=== PATIENT | female | born 1975 | race Caucasian/White ===

== ENCOUNTER → 2021-10-20 | Day surgery (SDC) | payer BC ==
[2021-10-20 10:31] VITALS: RESP 16
[2021-10-20 11:35] VITALS: BP 117/76; PULSE 84; TEMP 98.3
--- NOTE | 2021-10-20 12:28 | MM ---
EXAMINATION TYPE: MG stereo VAD BX RT DATE OF EXAM: 10/20/2021 COMPARISON: Outside mammograms September 22, 2021 ON August 30, 2021. CLINICAL HISTORY: Abnormal mammogram TECHNIQUE: Stereotactic guided core biopsy of right breast with clip placement and follow-up diagnostic two-view mammogram.. FINDINGS: The procedure of stereotactic guided core biopsy was explained to the patient. Benefits, alternatives, and risks were discussed. An informed consent was then obtained. [facility] Shortness pathway was lateral to medial approach. I performed the localization, then performed the remainder of the procedure. Overlying skin is cleansed with Betadine. Lidocaine is used as anesthetic into the skin and deeper tissue. Lidocaine with epinephrine is used as anesthetic in the deeper tissue during sampling. A vacuum assisted biopsy gun was used to obtain multiple core samples. The patient tolerated the procedure well without any immediate complication. The patient was kept in the radiology department for short stay after the procedure and then discharged home in stable condition. Targeted calcifications are identified in specimen mammogram. Post biopsy mammogram shows the clip to appear in satisfactory position relative to the targeted area of concern on the preprocedure images. Single residual anterior calcification at this level noted. IMPRESSION: SUCCESSFUL, UNCOMPLICATED STEREOTACTIC GUIDED CORE BIOPSY OF AREA OF CONCERN IN THE RIGHT BREAST, FULL PATHOLOGY RESULTS TO FOLLOW. Intermediate index of suspicion noted at time of procedure. Pathology Results: High Risk RIGHT BREAST, STEREOTACTIC NEEDLE CORE BIOPSY: Focal flat epithelial atypia (FEA) and atypical ductal hyperplasia (ADH) in a background of fibrocystic changes including microcalcifications. Pseudoangiomatous stromal hyperplasia (PASH). Recommendation Surgical consult of the right breast. CHARLEY
== END ==
LOC: RADMAMWWP 10:19
PROVIDERS: ATTEND Family Medicine
DX: N60.91 Unspecified benign mammary dysplasia of right breast (principal)
CPT/HCPCS: 19081; A4648; J2001; 88305

== ENCOUNTER → 2021-11-24 | Outpatient (CLI) | payer BC ==
[2021-11-24 10:24] VITALS: BP 120/76; PULSE 79; RESP 16; TEMP 98.2
--- NOTE | 2021-11-24 11:03 | P.GSHP ---
History of Present Illness H&P Date: 11/24/21 Chief Complaint: atypia right breast stero core biopsy Adry is a 46 year old female seen in consultation for Dr. Mart status post right breast stero biopysy on 10-20-21. Pathology revelaed flat epithelial atypia, and typical ductal hyperplasia. He did not feel any new lumps masses or nodules of concern in either breast. She does have dense breast. She has had an inverted nipple on the right side for approximately 20 years. He is not complaining of any nipple discharge or skin changes. She has not had any surgery on either breast before. Caffeine: none nicotine: none chocolate: occasional Family History: father: of leukemia at 73 pateranal aunt: stomach cancer mother: cystic fibrosis Hormonal History: menarche: 16 M1, first born at 33, breast fed: yes periods regular; last one one week ago BCP: 2 years at 30 to 32 hormones: none Surgical History: Negative Medical history: high cholesterol Social History: Nicotine: Negative Alcohol: weekends occasional drugs: none - Constitutional Constitutional: Denies chills, Denies fever - EENT Comment: wears glasses to drive Eyes: denies blurred vision, denies pain Ears: deny: decreased hearing, tinnitus Ears, nose, mouth and throat: Denies headache, Denies sore throat - Breasts Breasts: bilateral: as per HPI - Cardiovascular Cardiovascular: Denies chest pain, Denies shortness of breath - Respiratory Respiratory: Denies cough, Denies 7 - Gastrointestinal Gastrointestinal: Denies abdominal pain, Denies diarrhea, Denies nausea, Denies vomiting - Genitourinary (Female) Genitourinary: Denies dysuria, Denies hematuria - Menstruation Menstruation: Reports as per HPI, Reports period normal - Musculoskeletal Musculoskeletal: Denies myalgias - Integumentary Integumentary: Denies pruritus, Denies rash - Neurological Neurological: Denies numbness, Denies weakness - Psychiatric Psychiatric: Denies anxiety, Denies depression - Endocrine Endocrine: Denies fatigue, Denies weight change - Hematologic/Lymphatic Comment: none - Allergic/Immunologic Allergic/Immunologic: Reports as per HPI Past Medical History Past Medical History: No Reported History History of Any Multi-Drug Resistant Organisms: None Reported Past Surgical History: No Surgical Hx Reported Past Anesthesia/Blood Transfusion Reactions: No Reported Reaction Past Psychological History: No Psychological Hx Reported Smoking Status: Former smoker Past Alcohol Use History: Occasional Past Drug Use History: None Reported - Past Family History Father History Unknown: Yes Family Medical History: Cancer Medications and Allergies Home Medications Medication Instructions Recorded Confirmed Type [place]-3 Fatty Acids [[place]-3] 1,000 mg PO DAILY 11/24/21 11/24/21 History Allergies Allergy/AdvReac Type Severity Reaction Status Date / Time No Known Allergies Allergy Verified 11/24/21 10:17 Surgical - Exam Vital Signs Temp Pulse Resp BP Pulse Ox 98.2 F 79 16 120/76 100 11/24/21 10:19 11/24/21 10:19 11/24/21 10:19 11/24/21 10:19 11/24/21 10:19 BMI 23 - General no distress - Eyes normal ocular movement - ENT no hearing loss, no congestion - Neck trachea midline - Respiratory normal respiratory effort, clear to auscultation - Cardiovascular Rhythm: regular Heart Sounds: normal: S1, S2 - Abdomen Abdomen: soft, non tender, no guarding, no rigid, no rebound - Integumentary normal turgor - Neurologic no disoriented, no combative - Musculoskeletal normal gait, normal posture - Psychiatric oriented to time, oriented to person, oriented to place, speech is normal, memory intact Breast Exam: BRA: 36C inspection: Bilateral grade 2 ptosis Palpation: Right breast: Biopsy site clean and dry, multiple positional exam fibrocystic changes no dominant masses or nodules of concern Right axilla: No adenopathy of concern left breast: Multiple positional exam fibrocystic changes no dominant masses or nodules of concern Left axilla: No adenopathy of concern Results Mammogram reviewed with radiology, pathology reviewed Assessment and Plan Assessment: Impression: Patient status post right breast stereotactic core biopsy, pathology revealed flat epithelial atypia, and atypical ductal hyperplasia as well as PAS H Plan: Needle localization excisional lumpectomy right breast with possible onco- plastic tissue transfer Risk and benefits of the procedure discussed with the patient and her . Risks include but are not limited to bleeding, infection, reaction to the anesthetic. The possibility of the needle slipping in the area of concern being that removed his discussed. They understand and wish to proceed. CC: Dr. Mart
== END ==
LOC: WWCWWP 10:10
PROVIDERS: ATTEND Surgery
DX: N60.91 Unspecified benign mammary dysplasia of right breast (principal); E78.00 Pure hypercholesterolemia, unspecified; Z87.891 Personal history of nicotine dependence

== ENCOUNTER 2022-02-28 09:23 | Day surgery (SDC) | payer BC ==
[~2022-02-28 09:23] MED LIST: DEXAMETHASONE SOD PHOSPHATE 4 MG/ML 1 ML VIAL IV ONE; HEPARIN SODIUM,PORCINE/PF 5,000 UNIT/0.5 ML SYRINGE SQ PRN; HYDROmorphone 0.5 MG/0.5 ML SYRINGE IVP PRN; LACTATED RINGERS 1,000 ML IV SCH; LIDOCAINE 1% (10MG/ML) FOR IV START INTRADERMA PRN; Pre Op ABX Message 1 EACH MISC MISCELLANE ONE
[2022-02-28] MEDS ORDERED: ALPRAZolam 0.5 MG TAB PO ONE (10:15)
[2022-02-28] MEDS ORDERED: ALPRAZolam 0.5 MG TAB ONE (10:15)
[2022-02-28] MEDS ORDERED: LIDOCAINE 1% INJ 10MG/ML (20 ML MDV) SQ ONE (10:42)
[2022-02-28] MEDS ORDERED: ONDANSETRON 4 MG/2 ML VIAL ONE (11:12)
[2022-02-28] MEDS ORDERED: SCOPOLAMINE 1 MG/72 HR PATCH TRANSDERM ONE (11:20)
[2022-02-28] MEDS ORDERED: LIDOCAINE 2% INJ 20 MG/ML (2 ML VIAL) ONE (13:45)
[2022-02-28] MEDS ORDERED: fentaNYL (PF) 50 MCG/ML 2 ML AMP ONE (13:45)
[2022-02-28] MEDS ORDERED: MIDAZOLAM 2 MG/2 ML VIAL ONE (13:45)
[2022-02-28] MEDS ORDERED: PROPOFOL 10 MG/ML 20 ML VIAL IV ONE (13:45)
[2022-02-28] MEDS ORDERED: SODIUM CHLORIDE 0.9% 50 ML with ceFAZolin 1,000 MG IV ONE ×2 (14:22)
[2022-02-28] MEDS ORDERED: LIDOCAINE 1% INJ 10MG/ML (30 ML VIAL-PF) SQ ONE (15:02)
--- NOTE | 2022-02-28 15:05 | P.OP ---
Date of Procedure: 02/28/22 Preoperative Diagnosis: Flat epithelial atypia right breast Postoperative Diagnosis: Same Procedure(s) Performed: Needle localization lumpectomy, onco-plastic tissue transfer 38Centimeters squared Anesthesia: DOMINIKA Surgeon: Valeri Rush Estimated Blood Loss (ml): 10 IV fluids (ml): 500 Pathology: other (Breasts tissue) Condition: stable Disposition: same day Indications for Procedure: Flat epithelial atypia on core biopsy Operative Findings: Dense breast tissue Description of Procedure: The patient was seen initially in the radiology department where needle localization of the area of concern in the right breast was performed. Patient was then brought to the operative suite. Following induction of anesthesia the right breast was prepped and draped in a sterile fashion. An incision was made and carried down to the shaft of the needle. Circumferential dissection was performed around the needle. The specimen was painted for orientation. Radiograph of the specimen revealed the area of concern had been sampled. The wound was well irrigated. Titanium clips were placed. An inferior flap 2 x 5 cm was performed. A superior flap 2 by 4 cm was formed. The cavity was 5 x 4 cm. The wound was well irrigated. After we were assured hemostatis was attained surgicell in power form was applied. Following this the flaps were brought together using a 3-0 Vicryl suture. The subcutaneous tissue was closed using a 3-0 Vicryl suture followed by a 4 Monocryl. Ten cc of 1% percent lidocaine was injected into the incision. Steri-Strips were applied. All instrument and sponge counts were correct at the end of the case. The patient tolerated the procedure in stable condition.
--- NOTE | 2022-02-28 15:06 | P.DS ---
Providers Attending physician: Valeri Rush Primary care physician: Lucy Tran Plan - Discharge Summary Discharge Rx Participant: No New Discharge Prescriptions: No Action [place]-3 Fatty Acids [[place]-3] 1,000 mg PO DAILY Discharge Medication List [place]-3 Fatty Acids [[place]-3] 1,000 mg PO DAILY 11/24/21 [History] Follow up Appointment(s)/Referral(s): Valeri Rush MD [STAFF PHYSICIAN] - 03/09/22 10:20 am Patient Instructions/Handouts: *Surgery [facility] - (Anesthesia) Discharge Instructions Outpatient Surgery, *Surgery [facility] - Scopalamine Patch Instructions, Breast Lumpectomy (DC) Activity/Diet/Wound Care/Special Instructions: wear bra at all times do not drive for 24 hours after discharge, or if taking narcotic pain medicine may shower after 48 hours Discharge Disposition: HOME SELF-CARE
[2022-02-28 15:21] VITALS: TEMP 98
[2022-02-28 16:33] VITALS: BP 109/58; PULSE 62; RESP 15
--- NOTE | 2022-03-07 09:46 | MM ---
Risk Values: Ana Lilia 5 year model risk: 0.8%. NCI Lifetime model risk: 7.7%. Prior Study Comparison: 11/26/2017 Bilateral MG screening mammo w CAD - 2, [facility]. 11/29/2017 Bilateral US breast BILAT - 2, [facility]. 06/12/2018 Right US breast RT - 2, [facility]. 08/31/2021 Bilateral MG 3D screening mammo w/cad, [facility]. 09/22/2021 Right MG 3D work up w/cad RT, [facility]. Pathology Description: Location: upper outer quadrant. Approach: CC FA Needle Type: 5 cm [place] Skin Nicks: 1 Informed consent was obtained and all the patient's questions were answered. The clip in question was localized mammographically. The standard sterile technique was utilized, as well as appropriate local anesthesia with 1% Lidocaine and bicarbonate. Localization needle followed by placement of a guidewire was performed under mammographic guidance. Verification images demonstrate appropriate deployment of the guidewire. The patient tolerated the procedure well and left the department in stable condition. Specimen radiograph demonstrates the clip in question to reside within the specimen. IMPRESSION: Successful needle localization and open biopsy right breast with pathology results pending. Pathology Results: Result: High risk, Atypical ductal hyperplasia. RIGHT BREAST, LUMPECTOMY: Focal atypical ductal hyperplasia/flat epithelial atypia (ADH/FEA). Fibrosis with hemorrhage, biopsy site change and acute inflammation. Fibrocystic change and focal pseudoangiomatous stromal hyperplasia (PASH) and focal microcalcification. All margins benign. Overall Assessment: High risk Management: Diagnostic Mammogram of the right breast in 6 months. Electronically signed and approved by: Bhupinder López M.D. Radiologis
== END 2022-02-28 16:47 | disposition home or self-care (01) ==
LOC: OR 09:23
PROVIDERS: ATTEND Surgery
DX: N62 Hypertrophy of breast (principal); E78.5 Hyperlipidemia, unspecified; N60.11 Diffuse cystic mastopathy of right breast; Z87.891 Personal history of nicotine dependence; Z80.6 Family history of leukemia; Z83.6 Family history of other diseases of the respiratory system; Z80.0 Family history of malignant neoplasm of digestive organs
CPT/HCPCS: 19125; 14301; 88307; 76098; 19281; J2250; J1100; J2405; J0690; J2001 ×3; J3010; J2704; J1644

== ENCOUNTER → 2022-02-28 | Outpatient (CLI) | payer BC | LOC: WWCWWP 09:18 | PROVIDERS: ATTEND Surgery | DX: Z53.9 Procedure and treatment not carried out, unspecified reason (principal) ==

== ENCOUNTER → 2022-03-09 | Outpatient (CLI) | payer BC ==
[2022-03-09 10:48] VITALS: BP 109/74; PULSE 69; RESP 16
--- NOTE | 2022-03-09 10:56 | P.PN ---
Progress Note - Text Progress Note Date: 03/09/22 Adry is a 46 year old female status post right breast lumpectomy for a core biopsy showing flat epithelial atypia. Pathology revealed flat epithelial atypia focally atypical ductal hyperplasia. Tolerated the procedure without difficulty. Ana Lilia Risk : 5 year: 2.2% lifetime risk: 18.9% Examination: lungs: clear heart: RRR incision: clan and dry Plan: follow up right breast mammogram in 6 months with appointment at that time we have discussed risk reduction secondary to Ana Lilia evaluation, and at this time she has declined risk reduction. CC: Dr. Mart
== END ==
LOC: LABWHC1 10:22
PROVIDERS: ATTEND Surgery
DX: N60.91 Unspecified benign mammary dysplasia of right breast (principal); Z98.890 Other specified postprocedural states

== ENCOUNTER → 2022-09-21 | Outpatient (CLI) | payer BC ==
--- NOTE | 2022-09-01 13:46 | MM ---
Reason for Exam: Follow-up at short interval from prior study. Last screening mammogram was performed 11 month(s) ago. Patient History: Menarche at age 16. First Full-Term at age 33. Late child-bearing (after 31). Premenopausal. Patient has history of breast feeding. Previous Atypical Ductal Hyperplasia at age 46. 02/28/2022, Lumpectomy on the Right side. 02/28/2022, High risk MG pre op needle loc RT on the right side. 10/20/2021, High risk Core Biopsy on the right side. Risk Values: Ana Lilia 5 year model risk: 5.3%. NCI Lifetime model risk: 32.4%. Prior Study Comparison: 11/26/2017 Bilateral MG screening mammo w CAD - 2, [facility]. 08/31/2021 Bilateral MG 3D screening mammo w/cad, [facility]. 09/22/2021 Right MG 3D work up w/cad RT, [facility]. Tissue Density: The breast tissue is heterogeneously dense. This may lower the sensitivity of mammography. Findings: Analyzed By CAD. Postsurgical changes of the right upper outer breast posterior depth. No new suspicious mass or worrisome cluster of calcifications within either breast. Overall Assessment: Benign, BI-RAD 2 Management: Screening Mammogram of both breasts in 1 year. A clinical breast exam by your physician is recommended on an annual basis and results should be correlated with mammographic findings. This exam should not preclude additional follow-up of suspicious palpable abnormalities. Results were given to the patient verbally at the time of exam. Electronically signed and approved by: Jimmy Dhillon D.O.
[2022-09-21 08:57] VITALS: BP 118/74; PULSE 76; RESP 16; TEMP 98.4
--- NOTE | 2022-09-21 09:31 | P.PN ---
Subjective Progress Note Date: 09/21/22 Principal diagnosis: Atypical ductal hyperplasia Adry is a 46 year old female seen in consultation for Dr. Mart status post right breast stero biopysy on 10-20-21. Pathology revelaed flat epithelial atypia, and typical ductal hyperplasia. [place] [id number]. This revealed focal atypical ductal hyperplasia/flat epithelial atypia. All margins were benign. The [place] [address]. This was personally reviewed. This revealed heterogeneously dense breast tissue and was considered to be BIRADS 2. At this time the patient is not complaining of any new lumps masses or nodules of concern in either breast. Ana Lilia 5 year model risk: 5.3% NCI lifetime risk: 32.4% Caffeine: none nicotine: none chocolate: occasional Family History: father: of leukemia at 73 pateranal aunt: stomach cancer mother: cystic fibrosis Hormonal History: menarche: 16 M1, first born at 33, breast fed: yes periods regular; last one one week ago BCP: 2 years at 30 to 32 hormones: none Surgical History: Negative Medical history: high cholesterol Social History: Nicotine: Negative Alcohol: weekends occasional drugs: none - Constitutional Constitutional: Denies chills, Denies fever - EENT Comment: wears glasses to drive Eyes: denies blurred vision, denies pain Ears: deny: decreased hearing, tinnitus Ears, nose, mouth and throat: Denies headache, Denies sore throat - Breasts Breasts: bilateral: as per HPI - Cardiovascular Cardiovascular: Denies chest pain, Denies shortness of breath - Respiratory Respiratory: Denies cough - Gastrointestinal Gastrointestinal: Denies abdominal pain, Denies diarrhea, Denies nausea, Denies vomiting - Genitourinary (Female) Genitourinary: Denies dysuria, Denies hematuria - Menstruation Menstruation: Reports as per HPI, Reports period normal - Musculoskeletal Musculoskeletal: Denies myalgias - Integumentary Integumentary: Denies pruritus, Denies rash - Neurological Neurological: Denies numbness, Denies weakness - Psychiatric Psychiatric: Denies anxiety, Denies depression - Endocrine Endocrine: Denies fatigue, Denies weight change - Hematologic/Lymphatic Comment: none - Allergic/Immunologic Allergic/Immunologic: Reports as per HPI Past Medical History Past Medical History: No Reported History History of Any Multi-Drug Resistant Organisms: None Reported Past Surgical History: No Surgical Hx Reported Past Anesthesia/Blood Transfusion Reactions: No Reported Reaction Past Psychological History: No Psychological Hx Reported Smoking Status: Former smoker Past Alcohol Use History: Occasional Past Drug Use History: None Reported - Past Family History Father History Unknown: Yes Family Medical History: Cancer Medications and Allergies Home Medications Medication Instructions Recorded Confirmed Type [place]-3 Fatty Acids [[place]-3] 1,000 mg PO DAILY 11/24/21 11/24/21 History Allergies Allergy/AdvReac Type Severity Reaction Status Date / Time No Known Allergies Allergy Verified 11/24/21 10:17 Objective - Vital Signs Vital signs: Vital Signs Temp 98.4 F 09/21/22 08:52 Pulse 76 09/21/22 08:52 Resp 16 09/21/22 08:52 BP 118/74 09/21/22 08:52 Pulse Ox 99 09/21/22 08:52 FiO2 Intake & Output 09/20/22 09/21/22 09/21/22 18:59 06:59 18:59 Weight 60.781 kg - Constitutional General appearance: Present: cooperative - EENT Eyes: Present: EOMI ENT: Present: hearing grossly normal - Neck Neck: Present: normal ROM - Respiratory Respiratory: bilateral: CTA - Cardiovascular Rhythm: regular Heart sounds: normal: S1, S2 - Gastrointestinal General gastrointestinal: Present: soft - Integumentary Integumentary: Present: normal turgor - Musculoskeletal Musculoskeletal: Present: gait normal - Psychiatric Psychiatric: Present: A&O x's 3, appropriate affect, intact judgment & insight - Additional findings Additional findings: Breast Exam: BRA: 36C inspection: Bilateral grade 2 ptosis Palpation: Right breast: multiple positional exam fibrocystic changes no dominant masses or nodules of concern, well healed scar right breast Right axilla: No adenopathy of concern left breast: Multiple positional exam fibrocystic changes no dominant masses or nodules of concern Left axilla: No adenopathy of concern Assessment and Plan Assessment: Impression: Fibrocystic breast disease Elevated Ana Lilia five-year risk/patient has declined chemoprophylaxis at this time close surveillance Plan: WE have discussed NCI risk greater than 20% and the potential for every 6 month evaluation alternating with mammogram versus MRI we will attempt to order an MRI in 6 months and I'll see the patient again at that time CC: Dr. Mart
== END | disposition home or self-care (01) ==
LOC: RADMAMWWP 09-01 12:57
PROVIDERS: ATTEND Surgery
DX: N60.11 Diffuse cystic mastopathy of right breast (principal); R92.8 Other abnormal and inconclusive findings on diagnostic imaging of breast; E78.00 Pure hypercholesterolemia, unspecified; Z87.891 Personal history of nicotine dependence; Z80.0 Family history of malignant neoplasm of digestive organs; Z80.6 Family history of leukemia; Z80.9 Family history of malignant neoplasm, unspecified
CPT/HCPCS: 77062; 77066

== ENCOUNTER → 2023-05-17 | Outpatient (CLI) | payer BC ==
--- NOTE | 2023-05-17 12:36 | P.PN ---
Subjective Progress Note Date: 05/17/23 Subjective Progress Note Date: 09/21/22 Principal diagnosis: Atypical ductal hyperplasia Adry is a 46 year old female seen in consultation for Dr. Mart status post right breast stero biopysy on 10-20-21. Pathology revelaed flat epithelial atypia, and typical ductal hyperplasia. She underwent [place] [id number]. This revealed focal atypical ductal hyperplasia/flat epithelial atypia. All margins were benign. The patient had a bilateral mammogram performed on . This was personally reviewed. This revealed heterogeneously dense breast tissue and was considered to be BIRADS 2. At this time the patient is not complaining of any new lumps masses or nodules of concern in either breast. Ana Lilia 5 year model risk: 5.3% NCI lifetime risk: 32.4% 05-17-23 Breast MRI done on 04-25-23 BENIGN FINDINGS BILATERAL She is not complaining of any new lumps masses or nodules in either breast She had an interview for genetic testing and decided not ot have it done Caffeine: none nicotine: none chocolate: occasional Family History: father: of leukemia at 73 pateranal aunt: stomach cancer mother: cystic fibrosis Hormonal History: menarche: 16 M1, first born at 33, breast fed: yes periods regular; last one one week ago BCP: 2 years at 30 to 32 hormones: none Surgical History: Negative Medical history: high cholesterol Social History: Nicotine: Negative Alcohol: weekends occasional drugs: none - Constitutional Constitutional: Denies chills, Denies fever - EENT Comment: wears glasses to drive Eyes: denies blurred vision, denies pain Ears: deny: decreased hearing, tinnitus Ears, nose, mouth and throat: Denies headache, Denies sore throat - Breasts Breasts: bilateral: as per HPI - Cardiovascular Cardiovascular: Denies chest pain, Denies shortness of breath - Respiratory Respiratory: Denies cough - Gastrointestinal Gastrointestinal: Denies abdominal pain, Denies diarrhea, Denies nausea, Denies vomiting - Genitourinary (Female) Genitourinary: Denies dysuria, Denies hematuria - Menstruation Menstruation: Reports as per HPI, Reports period normal - Musculoskeletal Musculoskeletal: Denies myalgias - Integumentary Integumentary: Denies pruritus, Denies rash - Neurological Neurological: Denies numbness, Denies weakness - Psychiatric Psychiatric: Denies anxiety, Denies depression - Endocrine Endocrine: Denies fatigue, Denies weight change - Hematologic/Lymphatic Comment: none - Allergic/Immunologic Allergic/Immunologic: Reports as per HPI Past Medical History Past Medical History: No Reported History History of Any Multi-Drug Resistant Organisms: None Reported Past Surgical History: No Surgical Hx Reported Past Anesthesia/Blood Transfusion Reactions: No Reported Reaction Past Psychological History: No Psychological Hx Reported Smoking Status: Former smoker Past Alcohol Use History: Occasional Past Drug Use History: None Reported - Past Family History Father History Unknown: Yes Family Medical History: Cancer Medications and Allergies Home Medications Medication Instructions Recorded Confirmed Type [place]-3 Fatty Acids [[place]-3] 1,000 mg PO DAILY 11/24/21 11/24/21 History Allergies Allergy/AdvReac Type Severity Reaction Status Date / Time No Known Allergies Allergy Verified 11/24/21 10:17 Objective - Constitutional General appearance: Present: cooperative - EENT Eyes: Present: EOMI ENT: Present: hearing grossly normal - Neck Neck: Present: normal ROM - Respiratory Respiratory: bilateral: CTA - Cardiovascular Rhythm: regular Heart sounds: normal: S1, S2 - Integumentary Integumentary: Present: normal turgor - Psychiatric Psychiatric: Present: A&O x's 3, appropriate affect, intact judgment & insight - Additional findings Additional findings: Breast Exam: BRA: 36C inspection: Bilateral grade 2 ptosis Palpation: Right breast: multi-positional exam fibrocystic changes no dominant masses or nodules of concern, well healed scar right breast Right axilla: No adenopathy of concern left breast: Multi-positional exam fibrocystic changes no dominant masses or nodules of concern Left axilla: No adenopathy of concern Assessment and Plan Assessment: Impression: Fibrocystic breast disease Elevated Ana Lilia five-year risk/patient has declined chemoprophylaxis at this time close surveillance Plan: She is going to have close surveillance at this time She is alternating MRI with mammograms and will have a mammogram in 6 months with an examination at that time she is still considering genetic testing CC: Dr. Mart
== END ==
LOC: WWCWWP 11:54
PROVIDERS: ATTEND Surgery
DX: N60.89 Other benign mammary dysplasias of unspecified breast (principal); E78.00 Pure hypercholesterolemia, unspecified; N60.19 Diffuse cystic mastopathy of unspecified breast; R63.5 Abnormal weight gain; Z87.891 Personal history of nicotine dependence

== ENCOUNTER → 2023-10-29 | Outpatient (CLI) | payer BC ==
--- NOTE | 2023-10-29 11:28 | MM ---
Reason for Exam: Follow-up at short interval from prior study. Last mammogram was performed 1 year(s) and 2 month(s) ago. Patient History: Menarche at age 16. First Full-Term at age 33. Late child-bearing (after 30). Premenopausal. Patient has history of breast feeding. Previous Atypical Ductal Hyperplasia at age 46. 02/28/2022, Lumpectomy on the Right side. 02/28/2022, High risk MG pre op needle loc RT on the right side. 10/20/2021, High risk Core Biopsy on the right side. Last menstrual period: 10/07/2023 Risk Values: Ana Lilia 5 year model risk: 3.5%. NCI Lifetime model risk: 23.6%. Prior Study Comparison: 11/26/2017 Bilateral MG screening mammo w CAD - 2, [facility]. 08/31/2021 Bilateral MG 3D screening mammo w/cad, [facility]. 09/22/2021 Right MG 3D work up w/cad RT, [facility]. 09/01/2022 Bilateral MG 3D diag mammo w/cad [facility], [facility]. Tissue Density: The breasts are heterogeneously dense, which may obscure small masses. Findings: Analyzed By CAD. Postexcisional scar and distortion posterior parietal quadrant right breast with surgical clips. Areas of asymmetric density appear unchanged without persisting abnormality on 3-D images. No suspicious microcalcification seen. Overall Assessment: Incomplete: need additional imaging evaluation, BI-RAD 0 Management: Diagnostic Breast Ultrasound of both breasts. Electronically signed and approved by: Nelly Carolina M.D. Radiologist
--- NOTE | 2023-10-29 12:13 | USB ---
Reason for Exam: Additional evaluation requested from prior study. Patient History: Menarche at age 16. First Full-Term at age 33. Late child-bearing (after 30). Premenopausal. Patient has history of breast feeding. Previous Atypical Ductal Hyperplasia at age 46. 02/28/2022, Lumpectomy on the Right side. 02/28/2022, High risk MG pre op needle loc RT on the right side. 10/20/2021, High risk Core Biopsy on the right side. Risk Values: Ana Lilia 5 year model risk: 3.5%. NCI Lifetime model risk: 23.6%. Technique: Method: Whole Breast Handheld. Doppler: Color. Patient Position: Supine. Prior Study Comparison: 08/31/2021 Bilateral MG 3D screening mammo w/cad, [facility]. 09/22/2021 Right MG 3D work up w/cad RT, [facility]. 09/01/2022 Bilateral MG 3D diag mammo w/cad [place], [facility]. Findings: The whole breast of both breasts, the axilla of both breasts and the retroareolar of both breasts were scanned. A complete US of all four quadrants of the bilateral breasts, axilla, and retro-areolar region were reviewed. Right: * Dense tissues are present throughout. * Benign 1.0 cm cyst at 8:00, 4 cm from the nipple. Additional small cysts are present. * Some scattered mild duct ectasia is demonstrated. Some of these ducts may demonstrate some internal debris/filling defect which should be reassessed in 6 months. * No other solid or cystic lesion or axillary lymphadenopathy. Left: * Dense tissue is present throughout. * Some scattered mild duct ectasia is noted such as at the 8:00 position. Some of these ducts may demonstrate some internal debris/filling defect which should be reassessed in 6 months. * At the 10:00 position, 5 cm from the nipple, there is an ovoid 2.3 x 1.7 x 0.9 cm hypoechoic area embedded within dense tissue. Suspect a prominent fat lobule that can be reassessed in 6 months. * No other solid or cystic lesion or axillary lymphadenopathy. Overall Assessment: Probably benign, BI-RAD 3 Management: Diagnostic Breast Ultrasound of both breasts in 6 months. A clinical breast exam by your physician is recommended on an annual basis and results should be correlated with mammographic findings. This exam should not preclude additional follow-up of suspicious palpable abnormalities. Results were given to the patient verbally at the time of exam. Note on Ana Lilia scores and lifetime risk: 1. A Ana Lilia score greater than 3% is considered moderate risk. If this is the case, consider specialist referral to assess eligibility for a risk reducing agent. 2. If overall lifetime risk for the development of breast cancer is 20% or higher, the patient may qualify for future screening with alternating mammogram and breast MRI. Electronically signed and approved by: Nelly Carolina M.D. Radiologist
== END | disposition home or self-care (01) ==
LOC: RADMAMWWP 10:59
PROVIDERS: ATTEND Surgery
DX: N60.01 Solitary cyst of right breast (principal); N60.41 Mammary duct ectasia of right breast; N60.42 Mammary duct ectasia of left breast; R92.333 Mammographic heterogeneous density, bilateral breasts
CPT/HCPCS: 77062; 77066

== ENCOUNTER → 2023-11-01 | Outpatient (CLI) | payer BC ==
[2023-11-01 12:11] VITALS: BP 113/76; PULSE 76; RESP 16; TEMP 98.4
--- NOTE | 2023-11-01 12:29 | P.PN ---
Subjective Progress Note Date: 11/01/23 Subjective Progress Note Date: 11-01-23 Principal diagnosis: Atypical ductal hyperplasia Adry is a 46 year old female seen in consultation for Dr. Mart status post right breast stero biopysy on 10-20-21. Pathology revelaed flat epithelial atypia, and typical ductal hyperplasia. She underwent [place] needle [place] [id number]. This revealed focal atypical ductal hyperplasia/flat epithelial atypia. All margins were benign. The patient had a bilateral mammogram performed on . This was personally reviewed. This revealed heterogeneously dense breast tissue and was considered to be BIRADS 2. At this time the patient is not complaining of any new lumps masses or nodules of concern in either breast. Ana Lilia 5 year model risk: 5.3% NCI lifetime risk: 32.4% 05-17-23 Breast MRI done on 04-25-23 BENIGN FINDINGS BILATERAL She is not complaining of any new lumps masses or nodules in either breast She had an interview for genetic testing and decided not ot have it done 11-01-23 The patient does not feel any new lumps but her breast feel granular. Bilateral mammogram on 10-29-23 which led to bilateral ultrasound on 10-29-23: diagnostic ultrasound of both breast in 6 months Ana Lilia 5 year risk: 3.5% life time risk: 23.6% Caffeine: none nicotine: none chocolate: occasional Family History: father: of leukemia at 73 pateranal aunt: stomach cancer mother: cystic fibrosis Hormonal History: menarche: 16 M1, first born at 33, breast fed: yes periods regular; last one one week ago BCP: 2 years at 30 to 32 hormones: none Surgical History: tooth extraction Medical history: high cholesterol Social History: Nicotine: Negative Alcohol: weekends occasional drugs: none - Constitutional Constitutional: Denies chills, Denies fever - EENT Comment: wears glasses to drive Eyes: denies blurred vision, denies pain Ears: deny: decreased hearing, tinnitus Ears, nose, mouth and throat: Denies headache, Denies sore throat - Breasts Breasts: bilateral: as per HPI - Cardiovascular Cardiovascular: Denies chest pain, Denies shortness of breath - Respiratory Respiratory: Denies cough - Gastrointestinal Gastrointestinal: Denies abdominal pain, Denies diarrhea, Denies nausea, Denies vomiting - Genitourinary (Female) Genitourinary: Denies dysuria, Denies hematuria - Menstruation Menstruation: Reports as per HPI, Reports period normal - Musculoskeletal Musculoskeletal: Denies myalgias - Integumentary Integumentary: Denies pruritus, Denies rash - Neurological Neurological: Denies numbness, Denies weakness - Psychiatric Psychiatric: Denies anxiety, Denies depression - Endocrine Endocrine: Denies fatigue, Denies weight change - Hematologic/Lymphatic Comment: none - Allergic/Immunologic Allergic/Immunologic: Reports as per HPI Past Medical History Past Medical History: No Reported History History of Any Multi-Drug Resistant Organisms: None Reported Past Surgical History: No Surgical Hx Reported Past Anesthesia/Blood Transfusion Reactions: No Reported Reaction Past Psychological History: No Psychological Hx Reported Smoking Status: Former smoker Past Alcohol Use History: Occasional Past Drug Use History: None Reported - Past Family History Father History Unknown: Yes Family Medical History: Cancer Medications and Allergies Home Medications Medication Instructions Recorded Confirmed Type [place]-3 Fatty Acids [[place]-3] 1,000 mg PO DAILY 11/24/21 11/24/21 History Allergies Allergy/AdvReac Type Severity Reaction Status Date / Time No Known Allergies Allergy Verified 11/24/21 10:17 Objective - Vital Signs Vital signs: Vital Signs Temp 98.4 F 11/01/23 12:05 Pulse 76 11/01/23 12:05 Resp 16 11/01/23 12:05 BP 113/76 11/01/23 12:05 Pulse Ox 99 11/01/23 12:05 FiO2 Intake & Output 10/31/23 11/01/23 11/01/23 18:59 06:59 18:59 Weight 61.689 kg - Constitutional General appearance: Present: cooperative - EENT Eyes: Present: EOMI ENT: Present: hearing grossly normal - Neck Neck: Present: normal ROM - Respiratory Respiratory: bilateral: CTA - Cardiovascular Heart sounds: normal: S1, S2 - Integumentary Integumentary: Present: normal turgor - Musculoskeletal Musculoskeletal: Present: gait normal - Psychiatric Psychiatric: Present: A&O x's 3, appropriate affect, intact judgment & insight - Additional findings Additional findings: Breast Exam: BRA: 36C inspection: Bilateral grade 2 ptosis Palpation: Right breast: multi-positional exam fibrocystic changes no dominant masses or nodules of concern, well healed scar right breast Right axilla: No adenopathy of concern left breast: Multi-positional exam fibrocystic changes no dominant masses or nodules of concern Left axilla: No adenopathy of concern Assessment and Plan Assessment: Impression: Fibrocystic breast disease Elevated Ana Lilia five-year risk/patient has declined chemoprophylaxis at this time close surveillance Plan: She is going to have close surveillance at this time She is alternating MRI with mammograms and will have an MRI in April and bilateral breast ultrasound She will follow up after her MRI and ultrasound she decided to wait for genetic counselling CC: Dr. Mart
== END ==
LOC: WWCWWP 11:38
PROVIDERS: ATTEND Surgery
DX: N60.11 Diffuse cystic mastopathy of right breast (principal); E78.00 Pure hypercholesterolemia, unspecified

== ENCOUNTER → 2024-05-23 | Outpatient (CLI) | payer BC ==
--- NOTE | 2024-05-23 13:35 | USB ---
Reason for Exam: Follow-up at short interval from prior study. Patient History: Menarche at age 16. First Full-Term at age 33. Late child-bearing (after 30). Premenopausal. Patient has history of breast feeding. Previous Atypical Ductal Hyperplasia at age 46. 02/28/2022, Lumpectomy on the Right side. 02/28/2022, High risk MG pre op needle loc RT on the right side. 10/20/2021, High risk Core Biopsy on the right side. Risk Values: Willie 5 year model risk: 3.3%. NCI Lifetime model risk: 23.0%. Technique: Method: Targeted. Prior Study Comparison: 09/22/2021 Right MG 3D work up w/cad RT, [facility]. 09/01/2022 Bilateral MG 3D diag mammo w/cad [place], [facility]. 10/29/2023 Bilateral MG 3D diag mammo w/cad [place], [facility]. Findings: The lateral section of the breast of the left breast and the retroareolar of both breasts were scanned. Ultrasound right breast subareolar and periareolar region. There is redemonstrated duct ectasia some of which contain internal echoes. Given the lack of nipple discharge, this can continue to be followed. No other solid or cystic lesion. Targeted ultrasound left breast 8:00, 10:00, and subareolar region. Scattered dense tissue is present. At the 10:00 position, 5 cm from the nipple, at the previously questioned site, there is a benign fat lobule measuring 1.9 cm embedded within the dense tissue. Overall Assessment: Probably benign, BI-RAD 3 Management: Diagnostic Mammogram of both breasts in 5 months. Diagnostic Breast Ultrasound of the right breast in 5 months. In time for the patient's annual exam. Reassess the right breast ectatic ducts with internal echoes at the time of follow-up. We note that the patient is scheduled to have a breast MRI. A clinical breast exam by your physician is recommended on an annual basis and results should be correlated with mammographic findings. This exam should not preclude additional follow-up of suspicious palpable abnormalities. Results were given to the patient verbally at the time of exam. NOTE ON WILLIE SCORES AND LIFETIME RISK: 1. A Willie score greater than 3% is considered moderate risk. If this is the case, consider specialist referral to assess eligibility for a risk reducing agent. 2. If overall lifetime risk for the development of breast cancer is 20% or higher, the patient may qualify for future screening with alternating mammogram and breast MRI. [facility], , 05/23/2024 1:31 PM. Electronically signed and approved by: Nelly Carolina M.D. Radiologist
== END | disposition home or self-care (01) ==
LOC: RADUSWWP 12:58
PROVIDERS: ATTEND Surgery
DX: R92.8 Other abnormal and inconclusive findings on diagnostic imaging of breast (principal)

== ENCOUNTER → 2024-05-27 | Outpatient (CLI) | payer BC ==
--- NOTE | 2024-05-29 10:10 | BMR ---
EXAM DATE: 05/27/2024 EXAM DESCRIPTION: MRI-Breast Bilat (W/WO Contrast) INDICATION: High risk surveillance. COMPARISON: Comparison was made to prior relevant imaging available in PACS TECHNIQUE: Multiplanar multisequence breast MRI was performed prior to and after administration of 7 mL of Gadavist intravenously. Post processing was performed utilizing a [employer] workstation. The technical portion of this study was performed at [facility] with radiological interpretation by [facility] radiology. FINDINGS: There is moderate, symmetric background parenchymal enhancement in breasts that are composed of heterogeneous fibroglandular tissue. RIGHT BREAST: Postsurgical changes are present in the upper outer posterior depth of the breast. Review of the dynamic contrast enhanced series shows no rapidly enhancing masses, suspicious enhancement patterns or other abnormalities. The T2 weighted series show no abnormality. LEFT BREAST: Review of the dynamic contrast enhanced series shows no rapidly enhancing masses, suspicious enhancement pattern or other abnormalities. The T2 weighted series show no abnormality. LYMPH NODES: No axillary or internal mammary lymphadenopathy. INCIDENTAL FINDINGS: Trace dependent bilateral pleural effusions. Trace pericardial effusion. IMPRESSION: Right breast: BI-RADS Category 2-benign. No MRI evidence of malignancy. Recommendation: MRI screening in 1 year Left breast: BI-RADS Category 1-negative. No MR evidence of malignancy. Recommendation: MRI screening in 1 year. OVERALL ASSESSMENT- BI-RADS 2 ANNUAL SCREENING BREAST MRI IN ADDITION TO MAMMOGRAPHY IS RECOMMENDED IN PATIENTS WITH LIFETIME RISK OF BREAST CANCER >20% MTDD
== END | disposition home or self-care (01) ==
LOC: RADMRIMAIN 08:08
PROVIDERS: ATTEND Surgery
DX: R92.8 Other abnormal and inconclusive findings on diagnostic imaging of breast (principal)
CPT/HCPCS: 77049; A9585

== ENCOUNTER → 2024-06-06 | Outpatient (CLI) | payer BC ==
[2024-06-06 15:05] VITALS: BP 105/67; PULSE 71; RESP 17; TEMP 98.1
--- NOTE | 2024-06-06 15:31 | P.PN ---
Subjective Progress Note Date: 06/06/24 Principal diagnosis: 06-06-24 Adry is a 48 year old female with increased risk of breast cancer. She had an open biopsy on 02-28-22 of the right breast which revealed focal atypical ductal hyperplasia/flat epithelial atypia. All margins were benign. She declined chemoprophylaxis. bilateral breast MRI 05-18-24 benign findings bilateral bilateral breast ultrasound 05-23-24 BIRAD 3; repeat right breast ultrasound in 5 months and bilateral mammogram She had an interview for genetic testing and decided not to have it done She is not complaining of any new lumps masses or nodules of concern in either breast. She is not complaining of any nipple discharge or skin changes in her breast. She has not had any recent trauma or infection in the breast. Ana Lilia 5 year risk: 3.5% life time risk: 23.6% Caffeine: none nicotine: none chocolate: occasional Family History: father: of leukemia at 73 pateranal aunt: stomach cancer mother: cystic fibrosis Hormonal History: menarche: 16 M1, first born at 33, breast fed: yes periods regular; last one one week ago BCP: 2 years at 30 to 32 hormones: none Surgical History: tooth extraction tooth implant Medical history: high cholesterol Social History: Nicotine: Negative Alcohol: weekends occasional drugs: none - Constitutional Constitutional: Denies chills, Denies fever - EENT Comment: wears glasses to drive Eyes: denies blurred vision, denies pain Ears: deny: decreased hearing, tinnitus Ears, nose, mouth and throat: Denies headache, Denies sore throat - Breasts Breasts: bilateral: as per HPI - Cardiovascular Cardiovascular: Denies chest pain, Denies shortness of breath - Respiratory Respiratory: Denies cough - Gastrointestinal Gastrointestinal: Denies abdominal pain, Denies diarrhea, Denies nausea, Denies vomiting - Genitourinary (Female) Genitourinary: Denies dysuria, Denies hematuria - Menstruation Menstruation: Reports as per HPI, Reports period normal - Musculoskeletal Musculoskeletal: Denies myalgias - Integumentary Integumentary: Denies pruritus, Denies rash - Neurological Neurological: Denies numbness, Denies weakness - Psychiatric Psychiatric: Denies anxiety, Denies depression - Endocrine Endocrine: Denies fatigue, Denies weight change - Hematologic/Lymphatic Comment: none - Allergic/Immunologic Allergic/Immunologic: Reports as per HPI Past Medical History Past Medical History: No Reported History History of Any Multi-Drug Resistant Organisms: None Reported Past Surgical History: No Surgical Hx Reported Past Anesthesia/Blood Transfusion Reactions: No Reported Reaction Past Psychological History: No Psychological Hx Reported Smoking Status: Former smoker Past Alcohol Use History: Occasional Past Drug Use History: None Reported - Past Family History Father History Unknown: Yes Family Medical History: Cancer Medications and Allergies Home Medications Medication Instructions Recorded Confirmed Type [place]-3 Fatty Acids [[place]-3] 1,000 mg PO DAILY 11/24/21 11/24/21 History Allergies Allergy/AdvReac Type Severity Reaction Status Date / Time No Known Allergies Allergy Verified 11/24/21 10:17 Objective - Vital Signs Vital signs: Vital Signs Temp 98.1 F 06/06/24 15:02 Pulse 71 06/06/24 15:02 Resp 17 06/06/24 15:02 BP 105/67 06/06/24 15:02 Pulse Ox 100 06/06/24 15:02 FiO2 Intake & Output 06/05/24 06/06/24 06/06/24 18:59 06:59 18:59 Weight 63.503 kg - Constitutional General appearance: Present: cooperative - EENT Eyes: Present: EOMI ENT: Present: hearing grossly normal - Neck Neck: Present: normal ROM - Respiratory Respiratory: bilateral: CTA - Cardiovascular Rhythm: regular Heart sounds: normal: S1, S2 - Integumentary Integumentary: Present: normal turgor - Musculoskeletal Musculoskeletal: Present: gait normal - Psychiatric Psychiatric: Present: A&O x's 3, appropriate affect, intact judgment & insight - Additional findings Additional findings: Breast Exam: BRA: 36C inspection: Bilateral grade 2 ptosis Palpation: Right breast: multi-positional exam fibrocystic changes no dominant masses or nodules of concern, well healed scar right breast Right axilla: No adenopathy of concern left breast: Multi-positional exam fibrocystic changes no dominant masses or nodules of concern Left axilla: No adenopathy of concern Assessment and Plan Assessment: Impression: Fibrocystic breast disease Elevated Ana Lilia five-year risk/patient has declined chemoprophylaxis at this time close surveillance Plan: She is going to have close surveillance at this time She is alternating MRI with mammograms and will have a bilateral mammogram and ultrasound in 5 months with appointment she decided to wait for genetic counselling CC: Dr. Mart
== END ==
LOC: WWCWWP 14:12
PROVIDERS: ATTEND Surgery
DX: N60.91 Unspecified benign mammary dysplasia of right breast (principal); N60.11 Diffuse cystic mastopathy of right breast; N60.12 Diffuse cystic mastopathy of left breast; Z87.891 Personal history of nicotine dependence

== ENCOUNTER → 2024-11-05 | Outpatient (CLI) | payer BC ==
--- NOTE | 2024-11-05 13:25 | MM ---
Reason for Exam: Follow-up at short interval from prior study. Last screening mammogram was performed 12 month(s) ago. Patient History: Menarche at age 16. First Full-Term at age 33. Late child-bearing (after 30). Premenopausal. Patient has history of breast feeding. Previous Atypical Ductal Hyperplasia at age 46. Patient used Hormonal Contraceptives for 2 years. 02/28/2022, Lumpectomy on the Right side. 02/28/2022, High risk MG pre op needle loc RT on the right side. 10/20/2021, High risk Core Biopsy on the right side. Risk Values: Naa Lilia 5 year model risk: 3.3%. NCI Lifetime model risk: 23.0%. Prior Study Comparison: 11/26/2017 Bilateral MG screening mammo w CAD - 2, [facility]. 11/29/2017 Bilateral US breast BILAT - 2, [facility]. 06/12/2018 Right US breast RT - 2, [facility]. 08/31/2021 Bilateral MG 3D screening mammo w/cad, [facility]. 09/22/2021 Right MG 3D work up w/cad RT, [facility]. 09/01/2022 Bilateral MG 3D diag mammo w/cad [place], [facility]. 10/29/2023 Bilateral US breast BILAT, [facility]. 10/29/2023 Bilateral MG 3D diag mammo w/cad [place], [facility]. 05/23/2024 Bilateral US breast limited BILAT, [facility]. 05/27/2024 Bilateral MR breast bilat wo/w con, [facility]. Tissue Density: The breasts are heterogeneously dense, which may obscure small masses. Findings: Analyzed By CAD. Right breast surgical clips. Stable fibroglandular tissue. No new suspicious masses, calcifications or distortions. Overall Assessment: Incomplete: need additional imaging evaluation, BI-RAD 0 Management: Diagnostic Breast Ultrasound of both breasts. Patient to get bilateral ultrasounds as ordered. Results were given to the patient verbally at the time of exam. Patient should continue monthly self-breast exams. A clinical breast exam by your physician is recommended on an annual basis. This exam should not preclude additional follow-up of suspicious palpable abnormalities. Note on Ana Lilia scores and lifetime risk: 1. A Ana Lilia score greater than 3% is considered moderate risk. If this is the case, consider specialist referral to assess eligibility for a risk reducing agent. 2. If overall lifetime risk for the development of breast cancer is 20% or higher, the patient may qualify for future screening with alternating mammogram and breast MRI. [facility], , 11/05/2024 1:22 PM. Electronically signed and approved by: Refugio Parker DO
--- NOTE | 2024-11-05 13:56 | USB ---
Reason for Exam: Follow-up at short interval from prior study. Patient History: Menarche at age 16. First Full-Term at age 33. Late child-bearing (after 30). Premenopausal. Patient has history of breast feeding. Previous Atypical Ductal Hyperplasia at age 46. Patient used Hormonal Contraceptives for 2 years. 02/28/2022, Lumpectomy on the Right side. 02/28/2022, High risk MG pre op needle loc RT on the right side. 10/20/2021, High risk Core Biopsy on the right side. Risk Values: Ana Lilia 5 year model risk: 3.3%. NCI Lifetime model risk: 23.0%. Technique: Method: Targeted. Prior Study Comparison: 09/22/2021 Right MG 3D work up w/cad RT, [facility]. 09/01/2022 Bilateral MG 3D diag mammo w/cad [place], [facility]. 10/29/2023 Bilateral MG 3D diag mammo w/cad [place], [facility]. Findings: The medial section of the breast of the left breast and the retroareolar of both breasts were scanned. Technique utilized:US breast limited BILAT Image; Ultrasound imaging of: Right breast retroareolar region and left breasts 8-10 o'clock, retroareolar region and axilla. Ectatic ducts seen within the right breast in the retroareolar region No intraductal mass. In the left breast seen dilated ducts without mass at 8-10 o'clock demonstrates dilated ducts. No intraductal mass. No evidence for organizing fluid collection or mass bilaterally. Overall Assessment: Probably benign, BI-RAD 3 Management: Diagnostic Breast Ultrasound of both breasts in 6 months. Continued precautionary surveillance recommended of these dilated ducts. A clinical breast exam by your physician is recommended on an annual basis and results should be correlated with mammographic findings. This exam should not preclude additional follow-up of suspicious palpable abnormalities. Results were given to the patient verbally at the time of exam. [facility], , 11/05/2024 1:46 PM. Electronically signed and approved by: Refugio Parker DO
== END | disposition home or self-care (01) ==
LOC: RADMAMWWP 12:55
PROVIDERS: ATTEND Surgery
DX: R92.8 Other abnormal and inconclusive findings on diagnostic imaging of breast (principal); R92.333 Mammographic heterogeneous density, bilateral breasts; Z92.0 Personal history of contraception
CPT/HCPCS: 77062; 77066